=== PATIENT | male | born 1940 | race Caucasian/White ===

== ENCOUNTER → 2017-12-23 | Outpatient (CLI) | payer MEDICARE, BC ==
[2015-11-09 12:29] VITALS: BMI 36.8
[~2017-12-23] MED LIST: ACET500T68 PO; AMOX500T10 PO; ASC500 PO; ASP325 PO; ASPI-715 PO; ASPI-757 PO; ASPI-879 PO; BACI1PAC TP; BET25 PO; CALC200 PO; CELE-1 PO; CEP500 PO; CEPH250C37 PO; CEPH500C24 PO; CET10 PO; CETI-169 PO; CETI10CA8 PO; CHOL10005 PO; CIP500 PO; CIPR-214 PO; CLIN300C99 PO; DECONGESTANT; DIOVAN HCT; DIPH-740 PO; DOC100 PO; DOCU-416 PO; FAM20 PO; FAMO-67 PO; FAMO20TA28 PO; GARL10005 PO; HYDR-2966 PO; HYDR-318 PO; HYDR-385 PO; HYDR-389 PO; HYDR12.556 PO; HYDR12.558 PO; HYDR12.561 PO; HYDR25SU51 RC; IBU600 PO; IBUP-1671 PO; IBUP200C71 PO; LIDO10VI16 INTRA-ART; LISI-349 PO; LISI-368 PO; LISI20TA29 PO; LOR5/325 PO; MAGN296S38 PO; METF-410 PO; METO25TA93 PO; METO50TA19 PO; METXR500 PO; NITR50CA35 PO; NITR50CA39 PO; OMEG-11 PO; OXYC-823 PO; OXYC-865 PO; OXYM-15 ENA; OXYM15MI14 ENA; OXYM15SP61 NS; OXYM30MI5 NS; PHEN-530 PO; PHEN200T32 PO; PHENA100 PO; PHENA200 PO; POLY17PO25 PO; PSEU-112 PO; PSEU-287 PO; PSEU120T65 PO; PSEU120T9 PO; SIMV-49 PO; SIMV10TA98 PO; TAM4 PO; TAMS0.4C25 PO; TAMS0.4C70 PO; TEST200V20 IM; TRAM-420 PO; TRI40I IART; TRIA15CR40 TP; ZINC50TA2 PO; [UNRECOGNIZED DRUG - CODE] PO; [UNRECOGNIZED DRUG - CODE] PO; [UNRECOGNIZED DRUG - SUPPLY]; multvitamin
== END ==
LOC: LAB 13:07
DX: C67.1 Malignant neoplasm of dome of bladder (principal)
CPT/HCPCS: 99001

== ENCOUNTER 2018-01-04 | Outpatient (RCR) | payer MEDICARE, BC ==
[2015-11-09 12:29] VITALS: BMI 36.8
[~2018-01-04] MED LIST changes: -PSEU-287 PO; +PSEU120T69 PO
[2018-01-07] MEDS ORDERED: NS 0.9% 150 ML BAG 150 ML ONE (08:01)
[2018-01-07] MEDS ORDERED: IOPAMIDOL 76% 150 ML INFUS BTL 150 ML ONE (08:01)
--- NOTE | 2018-01-07 11:29 | RADIOLOGY IMAGING REPORT ---
FACILITY: [facility] [place] PATIENT NAME: Mike Price : 1940 MR: [id number] V: [id number] EXAM DATE: ORDERING PHYSICIAN: MOHIT HAZEL TECHNOLOGIST: Location: [facility] Patient: Mike Price : 1940 Visit/Account:[id number] Date of Sevice: 01/07/2018 ABDOMEN/PELVIS W/WO CONTRAST HISTORY: Hematuria, carcinoma the bladder TECHNIQUE: Axial images acquired through the abdomen/pelvis both with and without IV contrast.. Jignesh nal and sagittal reformatting also performed. Dose Lowering Technique One of the following dose optimization techniques was utilized in the performance of this exam: Autom ated exposure control; adjustment of the mA and/or kV according to the patient's size; or use of an i terative reconstruction technique. Specific details can be referenced in the facility's radiology C T exam operational policy. CONTRAST: 125 mL Isovue-370 COMPARISON: September 20, 2017 FINDINGS: Visualized lung bases: Small pericardial effusion again seen Hepatobiliary: Again noted is a tiny calcification in the right lobe the liver Spleen: Multiple calcified granulomas Adrenals: Small calcification in the right adrenal gland appears unchanged Pancreas: Atrophic Kidneys ureters and bladder: There is a 2 mm nonobstructing calculus upper pole of the left kidney. Bilateral renal cysts appear unchanged. The prostate gland is enlarged inhomogeneous and impinges up on the floor the urinary bladder. There is asymmetric compression along the floor with a soft tissue density process extending into the lower left side of the bladder. This could represent an addition al bladder mass particularly in light of the clinical history. Genitalia: As above GI: There is colonic diverticulosis although no CT evidence of acute diverticulitis Vessels/spaces/nodes: 5 x 4.6 cm infrarenal abdominal aortic aneurysm is reidentified. Contrast is noted in the stent grafts extending within the aorta from just below the level of the renal arteries into the common iliac arteries bilaterally extensive vascular calcifications are seen throughout the remainder the abdomen and pelvis. Bones/soft tissues: Moderate spondylotic changes lumbar spine. Additional findings: None pertinent. IMPRESSION: 2 mm nonobstructing calculus upper pole calyx of the left kidney Bilateral renal cysts Prostate gland is enlarged inhomogeneous and impinges upon the floor the urinary bladder. There is a lso asymmetric compression along the floor with a soft tissue density process extending into the lowe r left side the bladder which could represent a bladder mass particularly in light of the clinical hi story. Cystoscopy is recommended for further evaluation Additional chronic findings as described Report Dictated By: Mala Hua MD at 01/07/2018 11:08 AM Report E-Signed By: Mala Hua MD at 01/07/2018 11:25 AM WSN:[id number]
== END 2018-01-07 18:00 | disposition home or self-care (01) ==
LOC: CT → LAB 15:30 → EDSTATUS 01-05 13:00 → CT 01-07 18:00
DX: R31.1 Benign essential microscopic hematuria (principal); C67.1 Malignant neoplasm of dome of bladder; N20.0 Calculus of kidney; N28.1 Cyst of kidney, acquired; N40.0 Benign prostatic hyperplasia without lower urinary tract symptoms
CPT/HCPCS: 36415; 74178; 82565; 99001; Q9967

== ENCOUNTER → 2018-01-04 | Outpatient (REF) | payer MEDICARE, BC ==
[2015-11-09 12:29] VITALS: BMI 36.8
== END ==
LOC: ZZSENDIN 12:00
DX: Z02.9 Encounter for administrative examinations, unspecified (principal)

== ENCOUNTER 2018-01-27 02:39 | Observation (INO) | payer MEDICARE, BC ==
[2015-11-09 12:29] VITALS: Ht 167.6 cm; Wt 116.1 kg
[~2018-01-27] VITALS: Ht 167.6 cm; Wt 116.1 kg
[2018-01-27] VITALS (12 sets, daily range): BP systolic 108–148; BP diastolic 63–83
[2018-01-27] MEDS ORDERED: FAMOTIDINE 20 MG TAB PO ONE (09:00)
[2018-01-27] MEDS ORDERED: MIDAZOLAM 2 MG/2 ML VIAL IVP PRN (09:00)
[2018-01-27] MEDS ORDERED: NORMOSOL R SOLN(*) 1000 ML BAG 1,000 ML IV PRN (09:00)
[2018-01-27] MEDS ORDERED: LIDOCAINE/SOD BICARB 8.4% SYR ID ONE (09:00)
[2018-01-27] MEDS ORDERED: ceFAZolin(*) 2GM/D5W 50ML 50 ML IVPB ONE (09:00)
[2018-01-27 09:08] LABS: PLATELET COUNT, AUTOMATED 200 K/uL (150-450)
[2018-01-27] MEDS ORDERED: fentaNYL CITR 100 MCG/2 ML AMP ONE ×4 (09:28→13:40)
[2018-01-27] MEDS ORDERED: LIDOCAINE 2% IV 100 MG/5ML SYR ONE (09:29)
[2018-01-27] MEDS ORDERED: PROPOFOL EMUL(*) 10MG/ML 20 ML 20 ML ONE (09:31)
[2018-01-27] MEDS ORDERED: IOPAMIDOL-200 50 ML VIAL IS ONE (10:17)
--- NOTE | 2018-01-27 10:25 | EKG ---
[place] [facility] [place] NAME: BONITA EVERETT : [id number] MR: [id number] V: [id number] EXAM DATE: ORDERING PHYSICIAN: LISA CHAND TECHNOLOGIST: SEVEN Sutherland Reason : PREOP-CYSTO Blood Pressure : / mmHG Vent. Rate : 054 BPM Atrial Rate : 054 BPM P-R Int : 190 ms QRS Dur : 096 ms QT Int : 424 ms P-R-T Axes : 020 -11 021 degrees QTc Int : 402 ms Sinus bradycardia with fusion complexes Cannot rule out Anterior infarct , age undetermined Abnormal ECG When compared with ECG of 18-JAN-2017 08:44, fusion complexes are now present Confirmed by JULISSA HERNANDES ([id number]) on 01/27/2018 2:18:39 PM Referred By: JAGRUTI Confirmed By:JULISSA HERNANDES
[2018-01-27] MEDS ORDERED: ONDANSETRON 4 MG/2 ML VIAL ONE (11:43)
[2018-01-27] MEDS ORDERED: HYDROCORTISONE 1% CR 28.35 GM TP ONE (12:15)
[2018-01-27] MEDS ORDERED: BELLADONNA ALK/OPIUM 60MG SUPP PR ONE (13:01)
[2018-01-27] MEDS ORDERED: GLYCOPYRROLATE 0.2 MG/ML SDV ONE ×2 (13:02→13:03)
[2018-01-27] MEDS ORDERED: BELLADONNA ALK/OPIUM 60MG SUPP PR PRN (13:35)
[2018-01-27] MEDS ORDERED: GLYCOPYRROLATE 0.2 MG/ML SDV IVP PRN (13:35)
[2018-01-27] MEDS ORDERED: ONDANSETRON 4 MG/2 ML VIAL IVP PRN (13:35)
[2018-01-27] MEDS ORDERED: FLUSH 10 ML SYR IVP PRN (13:35)
[2018-01-27] MEDS ORDERED: ZOLPIDEM TARTRATE 5 MG TAB PO PRN (13:35)
[2018-01-27] MEDS ORDERED: NALOXONE HCL 0.4 MG/ML VIAL IVP PRN (13:40)
[2018-01-27] MEDS ORDERED: HYDROmorphone PCA 6 MG/30 ML IV PRN (13:40)
[2018-01-27] MEDS ORDERED: WATER FOR IRRIG,STERILE 3000ML 3,000 ML IR PRN (13:45)
[2018-01-27] MEDS ORDERED: CHOL10005 PO (14:46)
[2018-01-27] MEDS ORDERED: OXYMETAZOLINE SPRAY 15 ML BTL ENA PRN (16:00)
[2018-01-27] MEDS ORDERED: INSULIN HUM LISPRO 100 UN/ML 3 ML VIAL SUBQ PRN (16:00)
[2018-01-27] MEDS ORDERED: HYDROmorphone HCL 2 MG/ML SDV IVP PRN (16:20)
[2018-01-27] MEDS ORDERED: ACETAMIN/CODEINE #3 300-30 MG PO PRN (16:20)
[2018-01-27] MEDS ORDERED: ALPRAZolam 0.25 MG TAB PO PRN (16:20)
--- NOTE | 2018-01-27 16:25 | Hospitalist Consultation ---
History of Present Illness Requesting Physician Dr. Gonzalez Reason for Consult Medication Management Chief Complaint s/p bladder surgery History of Present Illness He was admitted s/p bladder surgery. It is reported that the surgery went well and without complication. History Problems: (1) Hypertension, benign Status: Chronic (2) Type II diabetes mellitus Status: Chronic (3) Hypercholesteremia Status: Chronic (4) Primary localized osteoarthritis of right knee Status: Chronic Home Meds Active Scripts Celecoxib (CELEBREX) 200 Mg Capsule, 200 MG PO QDAY, #90 CAPSULE 4 Refills Prov:MOHIT MURILLO MD 08/18/17 Reported Medications Cholecalciferol (Vitamin D3) (VITAMIN D3) 1,000 Unit Tablet, 1000 UNIT PO, TAB 01/27/18 Oxymetazoline Hcl (12 HOUR NASAL RELIEF) 15 Ml [place], 1 SPRAY NS HS Y for PRN, SPRAY 11/25/17 Docusate Sodium (COLACE) 100 Mg Capsule, 2 CAP PO HS, CAPSULE 11/25/17 Pseudoephedrine Hcl (PSEUDOEPHEDRINE) 120 Mg Tablet.er, 1 TAB PO DAILY Y for CONGESTION 11/25/17 Simvastatin (SIMVASTATIN) 10 Mg Tablet, 1 TAB PO HS, TAB 11/25/17 Amoxicillin 500 Mg Tab (AMOXICILLIN 500 MG TAB) 500 Mg Tablet, 4 TAB PO DIRECTED, TAB 4 tabs One hour prior to dental 11/25/17 Hydrocortisone Acetate (ANUSOL-HC) 25 Mg Supp.rect, 25 MG RC Y for ITCHING, SUPP.RECT 09/21/17 Hydrochlorothiazide (HYDROCHLOROTHIAZIDE) 12.5 Mg Capsule, 1 TAB PO QDAY, CAPSULE 09/21/17 Tramadol Hcl (TRAMADOL HCL) 50 Mg Tablet, 1 TAB PO DAILY 05/20/17 Tamsulosin Hcl (TAMSULOSIN HCL) 0.4 Mg Cap.er.24h, 0.4 MG PO BID, CAP 05/20/17 Metoprolol Succinate (METOPROLOL SUCCINATE) 50 Mg Tab.er.24h, 1 TAB PO HS, TAB 05/20/17 Metformin Hcl (METFORMIN HCL) 500 Mg Tablet, 1 TAB PO DAILY, TAB 05/20/17 Lisinopril (LISINOPRIL) 20 Mg Tablet, 20 MG PO QDAY, TAB 05/20/17 [cpap& O2 @3liters] Unknown Strength No Conflict Check 05/20/17 Cetirizine Hcl (ZYRTEC) 10 Mg Capsule, 1 TAB PO QDAY, CAPSULE 05/20/17 Aspirin (ASPIRIN) 325 Mg Tablet, 1 TAB PO QDAY, TAB 05/20/17 Discontinued Reported Medications Cholecalciferol (Vitamin D3) (VITAMIN D3) Unknown Strength Tablet, PO, TAB 05/20/17 Discontinued Scripts Clindamycin Hcl (CLINDAMYCIN HCL) 300 Mg Capsule, 1 TAB PO TID, #21 CAPSULE 0 Refills Prov:REENA ZAMORA DNP, GEODETIC ENGINEER-BC 12/03/17 Allergies: Coded Allergies: latex (Verified Allergy, Intermediate, RASH, 02/07/16) meloxicam (Verified Allergy, Intermediate, RASH, 07/28/16) piroxicam (Verified Adverse Reaction, Unknown, diarrhea , 01/12/17) Patient History: FH: [place] (myocardial infarction) BROTHER, FH: brain cancer BROTHER, FH: diabetes mellitus BROTHER, FH: pancreatic cancer BROTHER, Hx Smoking: Yes (social smoker x 37 years about 10 cigs/day) Smoking Status: Former Smoker Exposure to Second Hand Smoke?: No Caffeine Intake: Coffee Caffeine/Cups Per Day: 2 Hx Alcohol Use: Yes Hx Substance Use Disorder: No Social Drug Use: Never Review of Systems All Systems Reviewed/Normal: Yes, Except as Noted Exam Vital Signs Vital Signs Date Time Temp Pulse Resp B/P (MAP) Pulse Ox O2 Delivery O2 Flow Rate FiO2 01/27/18 14:22 93 Nasal Cannula 4.0 01/27/18 14:15 97.7 63 14 137/75 (95) General Appearance: Alert, Awake, No Acute Distress, Afebrile Cardiovascular: Regular Rate and Rhythm Respiratory: No Respiratory Distress, Clear to Auscultation Psych: Alert & Oriented X3, Appropriate Mood & Affect Medical Decision Making Data Points Result Diagram: 01/27/18 0853 01/27/18 0853 Assessment and Plan Problems: (1) Type II diabetes mellitus Status: Chronic Assessment & Plan: He is on chronic treatment with Metformin. He will be placed on SS insulin level #1 and AC/HS blood sugars. He will restart metformin tomorrow. (2) Hypercholesteremia Status: Chronic Assessment & Plan: He is on chronic treatment with Simvastatin. (3) Hypertension, benign Status: Chronic Assessment & Plan: He is on chronic treatment with Metoprolol, Lisinopril and Hydrochlorothiazide. The Metoprolol and Lisinopril have been started with hold parameters. (4) Primary localized osteoarthritis of right knee Status: Chronic Assessment & Plan: He is on chronic treatment with Tramadol once daily, and Celebrex. The Celebrex will be held at this time secondary to hematuria. (5) BPH (benign prostatic hyperplasia) Status: Chronic Assessment & Plan: He is on chronic treatment with Tamsulosin. His aspirin has been stopped secondary to hematuria. Venous Thromboembolism Antithrombotics Is Pt On Any Antithrombotics?: No Prophylaxis Tx Contraindicated Pharmacological Contraindicati: Surgical Contraindication Exam Sepsis Risk: No Definite Risk ANITA BUSTILLO GEODETIC ENGINEER Jan 27, 2018 16:25
[2018-01-27] MEDS: LR(*) 1000 ML BAG 1,000 ML IV PRN (16:36)
[2018-01-27] MEDS: CEPHALEXIN MONO 500 MG CAP PO SCH ×2 (17:25→22:04)
--- NOTE | 2018-01-27 19:11 | OPERATIVE REPORT 1 ---
EVENT DATE: January 27, 2018 SURGEON: Jan Gonzalez MD ANESTHESIOLOGIST: Lawrence Dey MD ANESTHESIA: General anesthetic. PREOPERATIVE DIAGNOSES 1. Possible recurrent bladder cancer. 2. Possible bladder lesion on the left lateral aspect of the bladder. POSTOPERATIVE DIAGNOSES 1. Recurrent bladder cancer. 2. Left base of the bladder approximately 2 x 3 cm, inflammatory, slightly raised lesion. 3. Approximately 1 x 1 cm recurrent bladder lesion, left lateral anterior bladder neck area. PROCEDURES PERFORMED 1. Cystourethroscopy. 2. Transurethral resection of bladder lesions. 3. Vaporization of bladder lesions. 4. Hydrodistention of the bladder. 5. Mitomycin-C bladder treatment. DESCRIPTION OF PROCEDURE Under general anesthetic, the patient was prepped and draped in the extended lithotomy position. The 21 panendoscope was admitted through the urethra into the bladder. The urethra was normal. The prostate showed trilobar hyperplasia with obstruction. There was slight intravesical extension of the left lateral lobe. The bladder showed 4+ trabeculation. The trigone and ureteral orifices were normal. No bloody efflux from either orifice. Approximately 1 cm cephalad to the left ureteral orifice, there was an inflammatory, slightly raised, brownish lesion that measured to approximately 2 cm x 3 cm. There was a smaller lesion on the anterior upper lateral wall on the left. The lesions were transurethral resected and/or vaporized in their entirety. Three samples were sent to the pathologist for evaluation. Bleeding was controlled with spot coagulation. The bladder filled under gravity flow. It was measured to a total of approximately 650 mL. On reinspection of the bladder, there were no other demonstrable lesion and no demonstrable tears. The scope was withdrawn. A Estrella was placed and secured. The Estrella was put to gravity drainage. Plan Mitomycin-C bladder treatment in the recovery room. The patient tolerated the procedures satisfactorily and returned to the recovery room in satisfactory condition. This is an 78-year-old white male complaining of positive FISH test in December 2017. CT IVP was within normal limits except for a possible lesion on the left lateral aspect of the bladder. Options were discussed with the patient pretreatment. The patient was agreeable to evaluation and therapy as indicated. That has been accomplished. See operative note for details. The patient will receive a Mitomycin-C bladder treatment in the recovery room and probable cath removal. He will be discharged home versus possible admission and treatment and discharge in the a.m. The patient will be discharged home on his usual medications. The patient will be discharged home on Cipro, Pyridium, Pepcid, and [place] therapy. Plan followup in the office in approximately one week. The patient was given my cell phone number to contact me if there are any problems. DREW
[2018-01-27] MEDS: BENZALKONIUM CL 1:750 TOP SOLN TP SCH (21:00)
[2018-01-27] MEDS: DOCUSATE SODIUM 100 MG CAP PO SCH (21:00)
[2018-01-27] MEDS ORDERED: DOCUSATE SODIUM 100 MG CAP PO SCH (21:00)
[2018-01-27] MEDS ORDERED: SIMVASTATIN 20 MG TAB PO SCH (21:00)
[2018-01-27] MEDS ORDERED: METOPROLOL SUCC XL 50 MG TABCR 50 MG TAB.ER.24H PO SCH (21:00)
[2018-01-27] MEDS: TAMSULOSIN HCL 0.4 MG CAP PO SCH (22:03)
[2018-01-27] MEDS: FAMOTIDINE 20 MG TAB PO SCH (22:04)
[2018-01-27] MEDS: NEOMYCIN/POLYMYX/BACITR OINT 1 PACKET TP SCH (22:05)
[2018-01-28 02:46] VITALS: BP 125/73
[2018-01-28] MEDS ORDERED: traMADol 50 MG TAB PO SCH (06:00)
[2018-01-28] MEDS: LR(*) 1000 ML BAG 1,000 ML IV PRN (06:23)
[2018-01-28] MEDS ORDERED: BENZOCAINE/MENTHOL 1 EACH LOZG PO PRN (07:15)
[2018-01-28 07:22] VITALS: BP 129/69
[2018-01-28] MEDS ORDERED: HYDR-4308 PO (07:31)
[2018-01-28] MEDS ORDERED: FAMO20TA28 PO (07:31)
[2018-01-28] MEDS ORDERED: PHEN200T32 PO (07:32)
[2018-01-28] MEDS ORDERED: CIPR-214 PO (07:32)
[2018-01-28] MEDS: LISINOPRIL 20 MG TAB PO SCH ×2 (08:05→08:09)
[2018-01-28] MEDS: NEOMYCIN/POLYMYX/BACITR OINT 1 PACKET TP SCH (08:05)
[2018-01-28] MEDS: CEPHALEXIN MONO 500 MG CAP PO SCH (08:05)
[2018-01-28] MEDS: DOCUSATE SODIUM 100 MG CAP PO SCH (08:05)
[2018-01-28] MEDS: TAMSULOSIN HCL 0.4 MG CAP PO SCH (08:05)
[2018-01-28] MEDS: FAMOTIDINE 20 MG TAB PO SCH (08:05)
[2018-01-28] MEDS: BENZALKONIUM CL 1:750 TOP SOLN TP SCH (08:06)
[2018-01-28] MEDS ORDERED: mitoMYcin 20 MG VIAL 40 MG in WATER STERILE FOR INJ 50 ML VL 40 ML IR ONE (08:30)
[2018-01-28] MEDS ORDERED: metFORMIN HCL 500 MG TAB PO SCH (09:00)
--- NOTE | 2018-01-28 13:15 | Hospitalist Progress Note ---
Subjective Progress Notes Subjective Mr. Price is a 77 y.o. male with PMH of HTN, DM-II, BPH, Dyslipidemia, OA and he was admitted by Dr. Hazel and underwent bladder surgery. It is reported that the surgery went well and without complication. 01/28: He is afebrile and hemodynamically stable without complaint. He is being d/c'd by Dr. Hazel today and he is medically cleared to go. Patient Complains of: Neurological: No: Confusion, Weakness, Dizziness Cardiovascular: No: Chest Pain, Palpitations Respiratory: Other, No: Cough, Congestion, Shortness of Breath, Wheezing Gastrointestinal: No Nausea, No Vomiting, No Flatus Genitourinary: No Dysuria Musculoskeletal: No: Pain, Sprain, Strain Physical Exam Vital Signs Date Time Temp Pulse Resp B/P (MAP) Pulse Ox O2 Delivery O2 Flow Rate FiO2 01/28/18 07:25 Nasal Cannula 2.0 01/28/18 07:22 98.2 72 16 129/69 (89) 90 Intake and Output 01/29/18 07:00 Intake Total 240 ml Output Total 950 ml Balance -710 ml Intake Oral 240 ml Output Urine Total 950 ml # Voids 1 # Bowel Movements 1 General Appearance: Alert, Awake, No Acute Distress, Afebrile Neuro: No Gross deficits Eyes: PERRLA Cardiovascular: Normal Rhythm & Peripheral Pulses Respiratory: No Respiratory Distress GI: Soft and Non-Tender Extremities: Soft and Non Tender Psych: Alert & Oriented X3 Result Diagram: 01/27/18 0853 01/27/18 0853 Assessment and Plan Problems: (1) Type II diabetes mellitus Status: Chronic Assessment & Plan: He is on chronic treatment with Metformin. He will be placed on SS insulin level #1 and AC/HS blood sugars. He will restart metformin tomorrow. 01/28: I will restart his home medications on d/c (2) Hypercholesteremia Status: Chronic Assessment & Plan: He is on chronic treatment with Simvastatin. (3) Hypertension, benign Status: Chronic Assessment & Plan: He is on chronic treatment with Metoprolol, Lisinopril and Hydrochlorothiazide. The Metoprolol and Lisinopril have been started with hold parameters. (4) Primary localized osteoarthritis of right knee Status: Chronic Assessment & Plan: He is on chronic treatment with Tramadol once daily, and Celebrex. The Celebrex will be held at this time secondary to hematuria. (5) BPH (benign prostatic hyperplasia) Status: Chronic Assessment & Plan: He is on chronic treatment with Tamsulosin. His aspirin has been stopped secondary to hematuria. Condition stable Time Spent on Plan of Care: < 30 min Copies to: ZHANG ESTRADA MD; MOHIT HAZEL MD Exam Sepsis Risk: No Definite Risk HOWIE FONTAINE MD Jan 28, 2018 13:15
== END 2018-01-28 07:33 | disposition home or self-care (01) ==
LOC: OR 02:39 → MED 14:15
DX: N32.9 Bladder disorder, unspecified (principal); E11.9 Type 2 diabetes mellitus without complications; I10 Essential (primary) hypertension; Z85.51 Personal history of malignant neoplasm of bladder
CPT/HCPCS: 36415; 36416; 51720; 52235; 81001; 82948; 85025; 87088; 88305; 93005; A9270; G0378; J1815; J2001; J2405; J2704; J3010; J3490; J7120; J9280; 82310; 82374; 82435; 82565; 82947; 84132; 84295; 84520; J0690; Q9966

== ENCOUNTER 2018-01-28 17:38 | Emergency (ER) | payer MEDICARE, BC ==
[2015-11-09 12:29] VITALS: Wt 116.2 kg
[~2018-01-28 17:38] MED LIST changes: +HYDR-4308 PO
--- NOTE | 2018-01-28 18:26 | ER Report ---
History and Physical Time Seen By MD: 17:50 Hx. of Stated Complaint: UNABLE TO URINATE - REFERRED BY DOCTOR ILIR. HPI/ROS CHIEF COMPLAINT: Urine retention HISTORY OF PRESENT ILLNESS: 77 yo male presents to ED following discharge from [facility] today for bladder surgery. Pt reports that he had surgery on 01/27/18 for removal of two bladder tumors. Pt states his Estrella catheter was remove around 1130am before discharge and he has not been able to void since removal. Pt reports urgency. Denies pain or swelling. Denies numbness or tingling. REVIEW OF SYSTEMS: Genitourinary: Reports urgency and in ability to void. Respiratory: No cough, no dyspnea. Cardiovascular: No chest pain, no palpitations. Gastrointestinal: No vomiting, no abdominal pain. Musculoskeletal: No back pain. Allergies: Coded Allergies: latex (Verified Allergy, Intermediate, RASH, 01/28/18) meloxicam (Verified Allergy, Intermediate, RASH, 01/28/18) piroxicam (Verified Adverse Reaction, Unknown, diarrhea , 01/28/18) Home Meds Active Scripts Celecoxib (CELEBREX) 200 Mg Capsule, 200 MG PO QDAY, #90 CAPSULE 4 Refills Prov:MOHIT MURILLO MD 08/18/17 Reported Medications Ciprofloxacin Hcl (CIPROFLOXACIN HCL) 500 Mg Tablet, 500 MG PO Q12H, #20 TAB 01/28/18 Phenazopyridine Hcl (PHENAZOPYRIDINE HCL) 200 Mg Tablet, 200 MG PO TID Y for SPASMS, #20 TAB 01/28/18 Famotidine (PEPCID) 20 Mg Tablet, 20 MG PO BID, #20 TAB 01/28/18 Hydrocodone Bit/Acetaminophen (NORCO 7.5-325 TABLET) 1 Each Tablet, 1 TAB PO Q4- 6H Y for PAIN, #30 01/28/18 Cholecalciferol (Vitamin D3) (VITAMIN D3) 1,000 Unit Tablet, 1000 UNIT PO, TAB 01/27/18 Oxymetazoline Hcl (12 HOUR NASAL RELIEF) 15 Ml [place], 1 SPRAY NS HS Y for PRN, SPRAY 11/25/17 Docusate Sodium (COLACE) 100 Mg Capsule, 2 CAP PO HS, CAPSULE 11/25/17 Pseudoephedrine Hcl (PSEUDOEPHEDRINE) 120 Mg Tablet.er, 1 TAB PO DAILY Y for CONGESTION 11/25/17 Simvastatin (SIMVASTATIN) 10 Mg Tablet, 1 TAB PO HS, TAB 11/25/17 Amoxicillin 500 Mg Tab (AMOXICILLIN 500 MG TAB) 500 Mg Tablet, 4 TAB PO DIRECTED, TAB 4 tabs One hour prior to dental 11/25/17 Hydrocortisone Acetate (ANUSOL-HC) 25 Mg Supp.rect, 25 MG RC Y for ITCHING, SUPP.RECT 09/21/17 Hydrochlorothiazide (HYDROCHLOROTHIAZIDE) 12.5 Mg Capsule, 1 TAB PO QDAY, CAPSULE 09/21/17 Tramadol Hcl (TRAMADOL HCL) 50 Mg Tablet, 1 TAB PO DAILY 05/20/17 Tamsulosin Hcl (TAMSULOSIN HCL) 0.4 Mg Cap.er.24h, 0.4 MG PO BID, CAP 05/20/17 Metoprolol Succinate (METOPROLOL SUCCINATE) 50 Mg Tab.er.24h, 1 TAB PO HS, TAB 05/20/17 Metformin Hcl (METFORMIN HCL) 500 Mg Tablet, 1 TAB PO DAILY, TAB 05/20/17 Lisinopril (LISINOPRIL) 20 Mg Tablet, 20 MG PO QDAY, TAB 05/20/17 [cpap& O2 @3liters] Unknown Strength No Conflict Check 05/20/17 Cetirizine Hcl (ZYRTEC) 10 Mg Capsule, 1 TAB PO QDAY, CAPSULE 05/20/17 Aspirin (ASPIRIN) 325 Mg Tablet, 1 TAB PO QDAY, TAB 05/20/17 Discontinued Reported Medications Cholecalciferol (Vitamin D3) (VITAMIN D3) Unknown Strength Tablet, PO, TAB 05/20/17 Discontinued Scripts Clindamycin Hcl (CLINDAMYCIN HCL) 300 Mg Capsule, 1 TAB PO TID, #21 CAPSULE 0 Refills Prov:REENA ZAMORA DNP, PANEL LAMINATOR-BC 12/03/17 Past Medical/Surgical History Patient reports surgical removal of two bladder tumors on 01/27/[address] Gonzalez. Pt states long history of bladder cancer starting in 2010. Hx Smoking: Yes (social smoker x 37 years about 10 cigs/day) Smoking Status: Former Smoker Exposure to Second Hand Smoke?: No Hx Substance Use Disorder: No Hx Alcohol Use: Yes Constitutional Vital Sign - Last 24 Hours 01/28/18 01/28/18 01/28/18 17:42 18:00 18:30 Temp 98.3 Pulse 81 97 88 Resp 20 B/P (MAP) 144/75 138/78 (98) 126/82 (97) Pulse Ox 90 89 O2 Delivery Room Air Intake and Output 01/28/18 01/28/18 01/29/18 15:00 23:00 07:00 Output Total 100 ml Balance -100 ml Physical Exam General Appearance: The patient is alert, has no immediate need for airway protection and no current signs of toxicity. Eyes: Pupils equal and round no injection. Respiratory: Chest is non tender, lungs are clear to auscultation. Cardiac: regular rate and rhythm Gastrointestinal: Abdomen is soft and non tender, no masses, bowel sounds normal. Negative CVA tenderness. Musculoskeletal: Neck: Neck is supple and non tender. Genitourinary: Meatus midline without inflammation or discharge. No masses or lesions of penis. Extremities have full range of motion and are non tender. Skin: No rashes or lesions. DIFFERENTIAL DIAGNOSIS: After history and physical exam differential diagnosis was considered for urinary obstruction, urinary retention, post procedure clotting. Medical Decision Making ED Course/Re-evaluation ED Course Patient was admitted and examined, history and physical were obtained. Differential diagnoses were considered. On examination patient had clear lungs and regular heart. Coude catheter inserted and leg bag attached. Urine drainage and immediate relief of urgency gone with insertion. Pt educated on use and proper care of catheter and bag. Pt given education of completing course of antibiotics. Educated on follow up with Dr. Gonzalez on 02/01/18. Decision to Disposition Date: Jan 28, 2018 Decision to Disposition Time: 18:36 Depart Departure Latest Vital Signs Vital Signs Date Time Temp Pulse Resp B/P (MAP) Pulse Ox O2 Delivery O2 Flow Rate FiO2 01/28/18 18:30 88 126/82 (97) 01/28/18 18:00 89 01/28/18 17:42 98.3 20 Room Air Impression: Primary Impression: Urinary retention Condition: Improved Disposition: HOME OR SELF-CARE Referrals: ZHANG ESTRADA MD (PCP) Patient Instructions: Urinary Retention in Men (ED) Additional Instructions: Empty follow bag frequently. Use large Estrella bag at night. Complete course of antibiotics. Follow up with Dr. Gonzalez till Wednesday as scheduled. Leave catheter in until follow up appointment. Return to ER with any problems. ZACARIAS BIRD Jan 28, 2018 18:26
[2018-01-28 18:30] VITALS: BP 126/82
== END 2018-01-28 18:47 | disposition home or self-care (01) ==
LOC: ER 17:54
DX: R33.9 Retention of urine, unspecified (principal)
CPT/HCPCS: 99283

== ENCOUNTER → 2018-03-14 | Outpatient (CLI) | payer MEDICARE, BC ==
[2015-11-09 12:29] VITALS: BMI 36.8
[~2018-03-14] MED LIST changes: -METF-410 PO; +METF-411 PO
== END ==
LOC: LAB 11:57
DX: C67.0 Malignant neoplasm of trigone of bladder (principal)

== ENCOUNTER 2018-04-18 00:58 | Observation (INO) | payer MEDICARE, BC ==
[~2018-04-18] VITALS: Ht 170.2 cm; Wt 117.1 kg
[2018-04-18] VITALS (13 sets, daily range): BP systolic 102–124; BP diastolic 64–74
[2018-04-18] MEDS ORDERED: fentaNYL CITR 250 MCG/5 ML AMP ONE (07:55)
[2018-04-18] MEDS ORDERED: PROPOFOL EMUL(*) 10MG/ML 20 ML 20 ML ONE (08:00)
[2018-04-18] MEDS ORDERED: LIDOCAINE MPF 1% 5 ML VIAL ONE (08:00)
[2018-04-18] MEDS ORDERED: ONDANSETRON 4 MG/2 ML VIAL ONE (08:00)
[2018-04-18 08:39] LABS: PLATELET COUNT, AUTOMATED 192 K/uL (150-450)
[2018-04-18] MEDS ORDERED: OXYCHLOROSENE SOD 2 GM BTL 2 GM in WATER STERILE IRRIG(*) 1000ML 1,000 ML IR ONE (09:05)
[2018-04-18] MEDS ORDERED: KETAMINE HCL 200 MG/20 ML MDV ONE (09:22)
[2018-04-18] MEDS ORDERED: NORMOSOL R SOLN(*) 1000 ML BAG 1,000 ML IV PRN (09:30)
[2018-04-18] MEDS ORDERED: LIDOCAINE/SOD BICARB 8.4% SYR ID ONE (09:30)
[2018-04-18] MEDS ORDERED: MIDAZOLAM 2 MG/2 ML VIAL IVP PRN (09:30)
[2018-04-18] MEDS ORDERED: ceFAZolin(*) 2GM/D5W 50ML 50 ML IVPB ONE (09:30)
[2018-04-18] MEDS ORDERED: FAMOTIDINE 20 MG TAB PO ONE (09:30)
[2018-04-18] MEDS ORDERED: ROCURONIUM BROM 10 MG/ML 5 ML ONE (10:00)
[2018-04-18] MEDS ORDERED: ePHEDrine 25 MG/5 ML DISP.SYR IVP ONE (10:01)
[2018-04-18] MEDS ORDERED: NS 0.9% 20 ML SDV 20 ML ONE (10:06)
[2018-04-18] MEDS ORDERED: MINERAL OIL LIGHT 10 ML VIAL ONE (10:18)
[2018-04-18] MEDS ORDERED: SUGAMMADEX SOD 500 MG/5 ML SDV ONE (10:33)
[2018-04-18] MEDS ORDERED: BELLADONNA ALK/OPIUM 60MG SUPP PR ONE (11:23)
[2018-04-18] MEDS ORDERED: GLYCOPYRROLATE 0.2MG/ML 1 ML INJ ONE (11:23)
[2018-04-18] MEDS ORDERED: fentaNYL CITR 100 MCG/2 ML AMP ONE ×2 (11:33→11:56)
[2018-04-18] MEDS ORDERED: ZOLPIDEM TARTRATE 5 MG TAB PO PRN (12:05)
[2018-04-18] MEDS ORDERED: NALOXONE HCL 0.4 MG/ML VIAL IVP PRN (12:05)
[2018-04-18] MEDS ORDERED: FLUSH 10 ML SYR IVP PRN (12:05)
[2018-04-18] MEDS ORDERED: HYDROmorphone PCA 6 MG/30 ML IV PRN (12:05)
[2018-04-18] MEDS ORDERED: ONDANSETRON 4 MG/2 ML VIAL IVP PRN (12:05)
[2018-04-18] MEDS ORDERED: BELLADONNA ALK/OPIUM 60MG SUPP PR PRN (12:05)
[2018-04-18] MEDS ORDERED: WATER FOR IRRIG,STERILE 3000ML 3,000 ML IR PRN (12:45)
--- NOTE | 2018-04-18 12:49 | OPERATIVE REPORT 1 ---
EVENT DATE: April 18, 2018 SURGEON: Jan Gonzalez MD ANESTHESIOLOGIST: Justin Watters MD ANESTHESIA: General. PREOPERATIVE DIAGNOSES 1. Possible recurrent bladder cancer. 2. 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 POSTOPERATIVE DIAGNOSES 1. Possible recurrent bladder cancer. 2. 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 PROCEDURE PERFORMED 1. Cystourethroscopy. 2. Clorpactin bladder treatment. 3. Transurethral resection of the prostate. 4. Vaporization of the prostate. DESCRIPTION OF PROCEDURE Under general anesthetic, the patient was prepped and draped in the extended lithotomy position. The 21 panendoscope admitted through the urethra into the bladder. The urethra was normal. The prostate showed trilobar hyperplasia with obstruction. Bladder showed 4+ trabeculation. No other demonstrable lesions. The previous treatment of biopsy sites were in the healing phase from December 2017. Otherwise the bladder was free of any lesions. Bladder under gravity flow filled to approximately 450 mL. On drainage of the bladder, there was no bloody drainage. On reinspection of the bladder, there were no glomerulations. The Clorpactin solution was introduced under gravity flow. The Clorpactin solution was left in contact with the surface of the bladder for approximately 5 minutes. The Clorpactin was drained. The resectoscope was introduced. The resection was performed at the bladder neck area, resecting the tissue down to the circular fibers circumferentially. Bleeding was controlled with spot coagulation. Right and left lateral lobes were resected. Posterior tissue was resected with a finger in the rectum. The apical tissue was resected at conclusion of the procedure. The resection appeared to be satisfactorily performed. All chips were evacuated from the bladder. The entire prostate capsule was vaporized. Bleeding appeared to be satisfactorily controlled. Bladder was filled under gravity flow. Scope was withdrawn. There was good efflux from irrigation fluid that cut off almost immediately after withdrawal of the scope. The #22 Estrella was inserted through the urethra over catheter guide and secured without any difficulty. Irrigation was satisfactory at the conclusion of the procedure. Patient tolerated the procedure satisfactorily and returned to the Recovery Room in satisfactory condition. ESTIMATED BLOOD LOSS Less than 50-100 mL. INDICATION FOR PROCEDURE This is an 78-year-old white male complaining of possible recurrent bladder cancer. Also complaining of outlet obstruction from the prostate gland. Patient has history after followup checks of his bladder of having marked difficulty with micturition and even has gone into urinary retention as he did this past December after his evaluation and treatment at that time. Options were discussed with the patient, and he was agreeable to further evaluation and therapy. That has been accomplished, see operative note for details. DISCHARGE INSTRUCTIONS Patient will receive probably a mitomycin C treatment in the a.m. Patient will be discharged home on Cipro, Pepcid, Pyridium, [place] therapy in addition to his usual medications. Plan followup in the office. Patient's activities are restricted to careful ambulation. Patient is to continue his usual medications. Copy of instructions were given to the patient. MIRTAD
[2018-04-18] MEDS: LR(*) 1000 ML BAG 1,000 ML IV PRN (13:53)
[2018-04-18] MEDS ORDERED: INSULIN HUM LISPRO 100 UN/ML 3 ML VIAL SUBQ PRN (14:25)
--- NOTE | 2018-04-18 14:43 | Hospitalist Progress Note ---
Subjective Progress Notes Subjective No cp/sob. 80cc of EBL. 1400cc of crystalloid, and ephedrine given intra-op. Physical Exam Vital Signs Date Time Temp Pulse Resp B/P (MAP) Pulse Ox O2 Delivery O2 Flow Rate FiO2 04/18/18 13:53 16 96 04/18/18 12:40 97.9 69 124/65 (84) Nasal Cannula 3.0 Intake and Output 04/19/18 06:59 Intake Total 1500 ml Balance 1500 ml Intake IV Total 100 ml Other 1400 ml General Appearance: Alert, Awake, No Acute Distress Cardiovascular: Regular Rate and Rhythm Respiratory: Clear to Auscultation Extremities: No Edema Result Diagram: 04/18/1882104/18/18821 Assessment and Plan Problems: (1) S/P TURP Status: Acute Assessment & Plan: No CV/pulmonary issues. (2) Type II diabetes mellitus Status: Chronic Assessment & Plan: Hold chronic metformin until the morning of 04/20. AC and HS glucose with SSI. (3) Hypertension, benign Status: Chronic Assessment & Plan: Continue chronic lisinopril, Toprol, and HCTZ with parameters. (4) AXEL on CPAP Status: Chronic Assessment & Plan: He brought his own CPAP. (5) S/P AAA (abdominal aortic aneurysm) repair Status: Chronic Assessment & Plan: He is chronically on ASA, which is on hold for now. Exam Sepsis Risk: No Definite Risk DEENA MENESES MD Apr 18, 2018 14:43
[2018-04-18] MEDS: BENZOCAINE/MENTHOL 1 EACH LOZG PO PRN ×4 (15:07→22:39)
[2018-04-18] MEDS: GENTAMICIN/NS 80 MG/100 ML PB 100 ML IVPB SCH (16:24)
[2018-04-18] MEDS ORDERED: NS 0.9% 250 ML VISIV BAG IV ONE (17:40)
[2018-04-18] MEDS ORDERED: NS(*) 0.9% 250 ML BAG 250 ML IVPB PRN (17:50)
[2018-04-18] MEDS: cefTRIAXone(*) 1 GM VIAL 1 GM in NS(*) 0.9% 100 ML ADDVANT BAG 100 ML IVPB SCH (18:29)
[2018-04-18] MEDS: SIMVASTATIN 20 MG TAB PO SCH (19:33)
[2018-04-18] MEDS: FAMOTIDINE 20 MG TAB PO SCH (19:33)
[2018-04-18] MEDS: NEOMYCIN/POLYMYX/BACITR OINT 1 PACKET TP SCH (19:33)
[2018-04-18] MEDS: DOCUSATE SODIUM 100 MG CAP PO SCH (19:33)
[2018-04-18] MEDS: BENZALKONIUM CL 1:750 TOP SOLN TP SCH (19:34)
[2018-04-18] MEDS: METOPROLOL SUCC XL 50 MG TABCR 50 MG TAB.ER.24H PO SCH (19:34)
[2018-04-19 03:29] VITALS: BP 136/78
[2018-04-19] MEDS: GENTAMICIN/NS 80 MG/100 ML PB 100 ML IVPB SCH ×2 (03:44→16:07)
[2018-04-19] MEDS: LR(*) 1000 ML BAG 1,000 ML IV PRN ×2 (03:44→18:55)
[2018-04-19] MEDS: BENZOCAINE/MENTHOL 1 EACH LOZG PO PRN ×3 (05:35→23:44)
[2018-04-19 07:44] VITALS: BP 141/73
[2018-04-19] MEDS ORDERED: BISACODYL 10 MG SUPP PR PRN (09:10)
[2018-04-19] MEDS ORDERED: MAGNESIUM HYDROXIDE* 30ML UDCP PO PRN (09:10)
--- NOTE | 2018-04-19 09:13 | Hospitalist Progress Note ---
Subjective Progress Notes Subjective He has no complaints this morning. He had no acute events overnight. Patient Complains of: Cardiovascular: No: Chest Pain Respiratory: No: Shortness of Breath Physical Exam Vital Signs Date Time Temp Pulse Resp B/P (MAP) Pulse Ox O2 Delivery O2 Flow Rate FiO2 04/19/18 07:55 93 Nasal Cannula 3.0 04/19/18 07:44 99.7 69 16 141/73 (95) General Appearance: Alert, Awake, No Acute Distress, Afebrile Neuro: No Gross deficits Cardiovascular: Regular Rate and Rhythm Respiratory: No Respiratory Distress, Clear to Auscultation Psych: Alert & Oriented X3, Appropriate Mood & Affect Result Diagram: 04/18/18 0822 04/19/18 0550 Assessment and Plan Problems: (1) S/P TURP Status: Acute Assessment & Plan: No CV/pulmonary issues. (2) Type II diabetes mellitus Status: Chronic Assessment & Plan: Hold chronic metformin until the morning of 04/20. AC and HS glucose with SSI. (3) Hypertension, benign Status: Chronic Assessment & Plan: Continue chronic lisinopril, Toprol, and HCTZ with parameters. (4) AXEL on CPAP Status: Chronic Assessment & Plan: He brought his own CPAP. (5) S/P AAA (abdominal aortic aneurysm) repair Status: Chronic Assessment & Plan: He is chronically on ASA, which is on hold for now. Exam Sepsis Risk: No Definite Risk ANITA BUSTILLO [employer] Apr 19, 2018 09:13
[2018-04-19] MEDS ORDERED: mitoMYcin 20 MG VIAL 40 MG in WATER STERILE FOR INJ 50 ML VL 40 ML IR ONE (09:40)
[2018-04-19] MEDS: LISINOPRIL 20 MG TAB PO SCH (09:45)
[2018-04-19] MEDS: DOCUSATE SODIUM 100 MG CAP PO SCH ×2 (09:45→20:59)
[2018-04-19] MEDS: HYDROCHLOROTHIAZIDE 25 MG TAB PO SCH (09:46)
[2018-04-19] MEDS: FAMOTIDINE 20 MG TAB PO SCH ×2 (09:46→20:59)
[2018-04-19] MEDS: BENZALKONIUM CL 1:750 TOP SOLN TP SCH ×2 (09:47→20:59)
[2018-04-19] MEDS: NEOMYCIN/POLYMYX/BACITR OINT 1 PACKET TP SCH ×2 (09:47→20:59)
[2018-04-19] MEDS: GLYCOPYRROLATE 0.2MG/ML 1 ML INJ IVP PRN ×2 (09:51→17:06)
[2018-04-19 11:39] VITALS: BP 138/76
[2018-04-19 13:45] VITALS: Ht 170.2 cm; Wt 117.1 kg
[2018-04-19 16:48] VITALS: BP 148/84
[2018-04-19] MEDS: cefTRIAXone(*) 1 GM VIAL 1 GM in NS(*) 0.9% 100 ML ADDVANT BAG 100 ML IVPB SCH (17:06)
[2018-04-19 19:29] VITALS: BP 136/75
[2018-04-19] MEDS: METOPROLOL SUCC XL 50 MG TABCR 50 MG TAB.ER.24H PO SCH (20:58)
[2018-04-19] MEDS: SIMVASTATIN 20 MG TAB PO SCH (20:59)
[2018-04-19 23:32] VITALS: BP 136/75
[2018-04-20 03:44] VITALS: BP 144/77
[2018-04-20] MEDS: GENTAMICIN/NS 80 MG/100 ML PB 100 ML IVPB SCH (04:20)
[2018-04-20] MEDS: GLYCOPYRROLATE 0.2MG/ML 1 ML INJ IVP PRN (05:55)
[2018-04-20 07:46] VITALS: BP 142/85
--- NOTE | 2018-04-20 08:17 | Hospitalist Progress Note ---
Subjective Progress Notes Subjective He only c/o some "scratchy" throat. He is planning on DC today. Physical Exam Vital Signs Date Time Temp Pulse Resp B/P (MAP) Pulse Ox O2 Delivery O2 Flow Rate FiO2 04/20/18 07:56 91 Nasal Cannula 2.0 04/20/18 07:53 16 04/20/18 07:46 98.3 64 142/85 (104) Intake and Output 04/21/18 06:59 Output Total 750 ml Balance -750 ml Output Urine Total 750 ml General Appearance: Alert, Awake Cardiovascular: Regular Rate and Rhythm Respiratory: Clear to Auscultation Result Diagram: 04/18/18 0822 04/19/18 0550 Item Value Date Time Whole Blood Glucose 120 mg/DL H 04/19/18 0755 Whole Blood Glucose 120 mg/DL H 04/19/18 1137 Whole Blood Glucose 106 mg/DL 04/19/18 1722 Whole Blood Glucose 128 mg/DL H 04/19/18 2118 Assessment and Plan Problems: (1) S/P TURP Status: Acute Assessment & Plan: As per Dr. Gonzalez. No CV/pulmonary issues. (2) Type II diabetes mellitus Status: Chronic Assessment & Plan: He will resume his usual metformin. (3) Hypertension, benign Status: Chronic Assessment & Plan: Continue chronic lisinopril, Toprol, and HCTZ. (4) AXEL on CPAP Status: Chronic Assessment & Plan: He will continue with his CPAP. (5) S/P AAA (abdominal aortic aneurysm) repair Status: Chronic Assessment & Plan: He is chronically on ASA, which will be resumed. Exam Sepsis Risk: No Definite Risk ANAMARIA CASAREZ MD Apr 20, 2018 08:16
[2018-04-20] MEDS: NEOMYCIN/POLYMYX/BACITR OINT 1 PACKET TP SCH (08:58)
[2018-04-20] MEDS: DOCUSATE SODIUM 100 MG CAP PO SCH (08:58)
[2018-04-20] MEDS: FAMOTIDINE 20 MG TAB PO SCH (08:58)
[2018-04-20] MEDS: HYDROCHLOROTHIAZIDE 25 MG TAB PO SCH (08:59)
[2018-04-20] MEDS: LISINOPRIL 20 MG TAB PO SCH (08:59)
[2018-04-20] MEDS: BENZALKONIUM CL 1:750 TOP SOLN TP SCH (09:00)
[2018-04-20] MEDS ORDERED: metFORMIN HCL 500 MG TAB PO SCH (09:00)
[2018-04-20] MEDS ORDERED: CIPR-214 PO (09:03)
[2018-04-20] MEDS ORDERED: HYDR-4308 PO (09:04)
[2018-04-20] MEDS ORDERED: FAMO20TA28 PO (09:05)
[2018-04-20] MEDS ORDERED: DOCU-416 PO (09:06)
[2018-04-20] MEDS ORDERED: PHEN200T32 PO (09:06)
[2018-04-20] MEDS ORDERED: mitoMYcin 20 MG VIAL 40 MG in WATER STERILE FOR INJ 50 ML VL 40 ML IR ONE (09:20)
[2018-04-27] MEDS ORDERED: HYDR25SU35 RC (17:26)
== END 2018-04-20 08:57 | disposition home or self-care (01) ==
LOC: OR 00:58 → MED 12:40
DX: N40.0 Benign prostatic hyperplasia without lower urinary tract symptoms (principal); E11.9 Type 2 diabetes mellitus without complications
CPT/HCPCS: 36415; 36416; 52648; 82948; 85025; 88305; 96372; A4346; A9270; G0378; J0696; J1170; J1580; J2001; J2405; J2704; J3010; J3490; J7050; J7120; J9280; 82310; 82374; 82435; 82565; 82947; 84132; 84295; 84520; J0690

== ENCOUNTER → 2018-06-21 | Outpatient (CLI) | payer MEDICARE, BC ==
[2018-04-19 13:45] VITALS: BMI 40.4
[~2018-06-21] MED LIST changes: +HYDR25SU35 RC; +IBUP-136 PO; -IBUP200C71 PO
== END ==
LOC: LAB 13:06 → EDSTATUS 13:08 → LAB 13:08
PROVIDERS: ATTEND Surgery Vascular Surgery
DX: I71.4 Abdominal aortic aneurysm, without rupture (principal)
CPT/HCPCS: 36415; 82565

== ENCOUNTER → 2018-06-23 | Outpatient (CLI) | payer MEDICARE, BC ==
[2018-04-19 13:45] VITALS: BMI 40.4
[~2018-06-23] MED LIST changes: +IOPAMIDOL 76% 100 ML INFUS BTL 100 ML ONE; +NS 0.9% ONE
--- NOTE | 2018-06-23 12:04 | RADIOLOGY IMAGING REPORT ---
FACILITY: [facility] PATIENT NAME: Mike Price : 1940 MR: [id number] V: [id number] EXAM DATE: ORDERING PHYSICIAN: DEYSI BARRERA TECHNOLOGIST: Location: [facility] - [place] Patient: Mike Price : 1940 Visit/Account:[id number] Date of Sevice: 06/23/2018 EXAMINATION: CTA abdominal aorta without and with IV contrast CTA pelvis without and with IV contrast HISTORY: Abdominal aortic aneurysm without rupture. COMPARISON: CT abdomen and pelvis from 09/20/2017. TECHNIQUE: Noncontrast axial images the abdomen and pelvis were obtained. Bolus thin section axial scans were obtained during maximal arterial opacification through the abdomen and pelvis. Reconstruc tion of the source data set includes multiplanar 2D in the sagittal and coronal planes, and 3D sagitt al and coronal thin slab MIP series. [employer] images have been stored on PACS. CONTRAST: 100 mL of IV Isovue-370. One of the following dose optimization techniques was utilized in the performance of this exam: Autom ated exposure control; adjustment of the mA and/or kV according to the patient's size; or use of an i terative reconstruction technique. Specific details can be referenced in the facility's radiology C T exam operational policy. FINDINGS: Please note that this exam is optimized for assessment of the abdominal aorta and iliac arteries and is not intended as a diagnostic study of other abdominal arterial and venous structures or of the abd ominal viscera. Angiographic findings: Abdominal aorta: Extensive atherosclerotic plaque of the aorta. Infrarenal aortic endograft remain s well-positioned. No intimal thickening within the graft. There is appropriate flow into both comm on iliac limbs. Fusiform aneurysmal dilatation of the [place] aorta measuring up to 4.3 cm is unchang ed. There is no abnormal enhancement within the [place] aorta. Iliacs: Mild calcified plaque bilaterally without stenosis. Other vasculature: There is calcified plaque at the origin of celiac trunk and SMA without stenosis . Single right renal artery and accessory left renal artery. Calcified plaque at the origin of the right renal artery without stenosis. There is calcified and soft plaque at the origin of both left r enal arteries, with 65% stenosis of the main left renal artery and mild narrowing of the accessory le ft renal artery, unchanged. Additional non-angiographic findings: Moderate degenerative changes of the lumbar spine with grade 1 anterolisthesis at L4-5. Several smal l splenic calcifications. Simple right renal cyst. Mild diverticulosis of the colon without adjacen t inflammation. IMPRESSION: 1. Aortic endograft is well-positioned without complication or evidence of endoleak. 2. Aortic atherosclerosis with fusiform aneurysm of the [place] aorta measuring 4.3 cm, unchanged. 3. Atherosclerotic plaque at the origin of the main left renal artery and accessory left renal arter y, with 65% stenosis of the main left renal artery, unchanged. Report Dictated By: Sarahi Duckworth MD at 06/23/2018 11:28 AM Report E-Signed By: Sarahi Duckworth MD at 06/23/2018 12:01 PM SAADIA:JOE
== END ==
LOC: CT 01:02
PROVIDERS: ATTEND Surgery Vascular Surgery
DX: I71.4 Abdominal aortic aneurysm, without rupture (principal); I25.10 Atherosclerotic heart disease of native coronary artery without angina pectoris
CPT/HCPCS: 74174; J7050; Q9967

== ENCOUNTER → 2018-07-27 | Outpatient (CLI) | payer MEDICARE, BC ==
[2018-04-19 13:45] VITALS: BMI 40.4
[~2018-07-27] MED LIST changes: -IOPAMIDOL 76% 100 ML INFUS BTL 100 ML ONE; -METF-411 PO; +METF-450 PO; -NS 0.9% ONE
== END ==
LOC: RESP 19:30
PROVIDERS: ATTEND Family Medicine
DX: G47.33 Obstructive sleep apnea (adult) (pediatric) (principal); G47.61 Periodic limb movement disorder; G47.36 Sleep related hypoventilation in conditions classified elsewhere

== ENCOUNTER → 2018-07-29 | Outpatient (CLI) | payer MEDICARE, BC ==
[2018-04-19 13:45] VITALS: BMI 40.4
== END ==
LOC: LAB 10:31
DX: C67.1 Malignant neoplasm of dome of bladder (principal)

== ENCOUNTER → 2018-08-23 | Outpatient (CLI) | payer MEDICARE, BC ==
[2018-04-19 13:45] VITALS: BMI 40.4
[~2018-08-23] MED LIST changes: -HYDR-4308 PO; +HYDR-654 PO
[2018-08-23 15:22] LABS: PLATELET COUNT, AUTOMATED 228 K/uL (150-450)
== END ==
LOC: LAB 14:39
PROVIDERS: ATTEND Family Medicine
DX: E11.9 Type 2 diabetes mellitus without complications (principal); I10 Essential (primary) hypertension
CPT/HCPCS: 36415; 82040; 82247; 82310; 82374; 82435; 82565; 82947; 83036; 84075; 84132; 84155; 84295; 84450; 84460; 84520; 85025

== ENCOUNTER → 2018-12-16 | Outpatient (CLI) | payer MEDICARE, BC ==
[2018-04-19 13:45] VITALS: BMI 40.4
[~2018-12-16] MED LIST changes: -OXYM-15 ENA; +OXYM30SP22 ENA
== END ==
LOC: LAB 12:16
DX: C67.1 Malignant neoplasm of dome of bladder (principal); R31.1 Benign essential microscopic hematuria; R97.20 Elevated prostate specific antigen [PSA]
CPT/HCPCS: 36415; 84153

== ENCOUNTER → 2019-01-25 | Outpatient (CLI) | payer MEDICARE, BC ==
[2018-04-19 13:45] VITALS: BMI 40.4
[2019-01-25 15:07] LABS: PLATELET COUNT, AUTOMATED 232 K/uL (150-450)
== END ==
LOC: LAB 14:26
PROVIDERS: ATTEND Family Medicine
DX: E11.9 Type 2 diabetes mellitus without complications (principal)
CPT/HCPCS: 36415; 82310; 82374; 82435; 82565; 82947; 83036; 84132; 84295; 84520; 85025

== ENCOUNTER → 2019-03-02 | Outpatient (CLI) | payer MEDICARE, BC ==
[2018-04-19 13:45] VITALS: BMI 40.4
--- NOTE | 2019-03-02 13:54 | RADIOLOGY IMAGING REPORT ---
FACILITY: [facility] PATIENT NAME: Mike Price : 1940 MR: [id number] V: [id number] EXAM DATE: ORDERING PHYSICIAN: SANTI ROJO TECHNOLOGIST: Location: [facility] - [place] Patient: Mike Price : 1940 Visit/Account:[id number] Date of Sevice: 03/02/2019 INDICATION: . Right shoulder pain for several years. DATE: 03/02/2019 1:41 PM. TECHNIQUE: CT SHOULDER W/O RT. Noncontrast axial CT imaging was performed to the right shoulder with sagittal and coronal reformats. One of the following dose optimization techniques was utilized in the performance of this exam: Automated exposure control; adjustment of the mA and/or kV according to th e patient's size; or use of an iterative reconstruction technique. Specific details can be referenc ed in the facility's radiology CT exam operational policy. COMPARISON: None recent. FINDINGS: Glenohumeral degenerative findings are severe with [id number] articulation, extensive subchondral s clerosis, and subchondral cystic change of both the humeral head and glenoid. There are large humeral head osteophytes, and the humeral head is dysplastic. Degenerative findings are moderate to severe a t the AC joint. No evidence of acute fracture or dislocation. There may be an old posttraumatic defor mity of the proximal right humerus. IMPRESSION: 1. Severe glenohumeral degenerative findings. 2. Moderate to severe degenerative change at the AC joint. 3. No acute osseous abnormality. Report Dictated By: Sarah Blount MD at 03/02/2019 1:41 PM Report E-Signed By: Sarah Blount MD at 03/02/2019 1:48 PM WSN:[id number]
== END ==
LOC: CT 00:15
PROVIDERS: ATTEND Orthopaedic Surgery Hand Surgery
DX: M19.011 Primary osteoarthritis, right shoulder (principal)

== ENCOUNTER → 2019-03-28 | Outpatient (CLI) | payer MEDICARE, BC ==
[2018-04-19 13:45] VITALS: BMI 40.4
--- NOTE | 2019-03-28 09:29 | EKG ---
FACILITY: [facility] - [place] PATIENT NAME: BONITA EVERETT : [id number] MR: [id number] V: [id number] EXAM DATE: ORDERING PHYSICIAN: SANTI ROJO TECHNOLOGIST: SEVEN Suther[place] Reason : PREOP-SHOULDER Blood Pressure : / mmHG Vent. Rate : 063 BPM Atrial Rate : 063 BPM P-R Int : 192 ms QRS Dur : 092 ms QT Int : 408 ms P-R-T Axes : 026 -10 045 degrees QTc Int : 417 ms Sinus rhythm with premature atrial complexes Low voltage QRS Septal infarct (cited on or before 27-JAN-2018) No ST-T abnormalities When compared with ECG of 27-JAN-2018 09:49, premature atrial complexes are now present Confirmed by DEENA MENESES ([id number]) on 03/28/2019 2:03:12 PM Referred By: DARREL Confirmed By:DEENA MENESES
[2019-03-28 09:31] LABS: PLATELET COUNT, AUTOMATED 230 K/uL (150-450)
== END ==
LOC: LAB 08:47
PROVIDERS: ATTEND Orthopaedic Surgery Hand Surgery
DX: Z01.812 Encounter for preprocedural laboratory examination (principal); Z01.810 Encounter for preprocedural cardiovascular examination; M25.511 Pain in right shoulder; I10 Essential (primary) hypertension
CPT/HCPCS: 36415; 81001; 82040; 82247; 82310; 82374; 82435; 82565; 82947; 83036; 84075; 84132; 84155; 84295; 84450; 84460; 84520; 85025; 93005